=== PATIENT | female | born 1965 | race Asian ===

== ENCOUNTER 2021-10-23 10:30 | Emergency (ER) | payer OTHER ==
[2021-10-23] MEDS ORDERED: ACETAMINOPHEN 500 MG TAB ONE (10:59)
[2021-10-23] MEDS ORDERED: IBUPROFEN 400 MG TAB ONE (10:59)
[2021-10-23] MEDS ORDERED: TETANUS & DIPHTHERIA TOX,ADULT 0.5 ML VIAL ONE (11:00)
[2021-10-23] MEDS ORDERED: MUPIROCIN 2% OINT 22GM TUBE TOP ONE (11:05)
--- NOTE | 2021-10-23 11:05 | EDPHYS ---
Physician Documentation [facility] Name: Jayne Solano Age: 56 yrs Sex: Female : 1965 Arrival Date: 10/23/2021 Time: 10:31 Bed 17 Private MD: ED Physician Geovani Perez HPI: 10/23 10:47 This 56 yrs old Female presents to ER via Unassigned with complaints of Dog Bite. jr11 10:47 The patient was bitten on the lateral aspect of left thigh, by a dog, in an unprovoked jr11 manner, outdoors, animal control has dog and is testing brain. Onset: The symptoms/episode began/occurred [employer]. Animal information: The animal was reported to appear healthy. is unknown, The animal is unknown but captured. Animal control has been notified. Secondary to the bite the patient reports pain, a puncture wound, that is superficial. Associated signs and symptoms: The patient has no apparent associated signs or symptoms. Denies any other injuries, ambulatory . Historical: - Allergies: 10:48 No Known Allergies; ricketts - Home Meds: 10:48 None [Active]; ricketts - PMHx: 10:48 None; ricketts - PSHx: 10:48 None; ricketts - Immunization history:: Adult Immunizations up to date. - Social history:: Smoking status: Patient denies any tobacco usage or history of. ROS: 10:47 All other systems are negative. jr11 Exam: 10:47 Constitutional: This is a well developed, well nourished patient who is awake, alert, jr11 and in no acute distress. Head/Face: Normocephalic, atraumatic. Eyes: Extra-ocular motions intact. Lids and lashes normal. Conjunctiva and sclera are non-icteric and not injected. Cornea within normal limits. Periorbital areas with no swelling, redness, or edema. ENT: Nares patent. No nasal discharge, no septal abnormalities noted. Oropharynx with no redness, swelling, or masses, exudates, or evidence of obstruction, uvula midline. Mucous membranes moist. Chest/axilla: Normal chest wall appearance and motion. Nontender with no deformity. No lesions are appreciated. Cardiovascular: Regular rate and rhythm with a normal S1 and S2. No gallops, murmurs, or rubs. Normal PMI, no JVD. No pulse deficits. Respiratory: Lungs have equal breath sounds bilaterally, clear to auscultation and percussion. No rales, rhonchi or wheezes noted. No increased work of breathing, no retractions or nasal flaring. Abdomen/GI: Soft, non-tender, with normal bowel sounds. No distension or tympany. No guarding or rebound. No evidence of tenderness throughout. Back: No spinal tenderness. No costovertebral tenderness. Full range of motion. Neuro: Awake and alert, GCS 15, oriented to person, place, time, and situation. No gross motor or sensory deficits. 10:47 Skin: L mid thigh lateral aspect with 4 puncture wounds, no active bleeding . Vital Signs: 10:44 BP 162 / 112; Pulse 84; Resp 20; Temp 98.2; Pulse Ox 100% on R/A; Weight 53.52 kg; ricketts Height 5 ft. 2 in. (157.48 cm); 10:44 Body Mass Index 21.58 (53.52 kg, 157.48 cm) ricketts MDM: 10:34 Patient medically screened. [facility] 10:47 Differential diagnosis: superficial laceration, dog bite. Rabies Status: Rabies [facility] immunization is not indicated. Data reviewed: vital signs, nurses notes. ED course: Animal control has dog, will follow up with patient re rabies prophylaxis . 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 Exp: ricketts 07/26/2023. Lot #: [id number]. } Route: IM; Site: right deltoid; 10:56 Follow up: Response: No adverse reaction ricketts 10:56 Drug: Tylenol 1000 mg Route: PO; ricketts 11:20 Follow up: Response: No adverse reaction ricketts 10:56 Drug: Ibuprofen 400 mg Route: PO; ricketts 11:19 Follow up: Response: No adverse reaction ricketts Disposition Summary: 10/23/21 11:04 Discharge Ordered Location: Home [facility] Condition: Stable jr11 Diagnosis - Bitten by dog jr11 Discharge Instructions: - Discharge Summary Sheet jr11 - Animal Bite, Adult jr11 Forms: - Medication Reconciliation Form jr11 - Thank You Letter jr11 - Antibiotic Education jr11 - Prescription Opioid Use jr11 Prescriptions: - Augmentin 875-125 mg Oral Tablet - take 1 tablet by ORAL route every 12 hours for 10 days; 20 tablet; Refills: 0, jr11 Product Selection Permitted Signatures: Karishma Carbone RN RN ha Rosillo, Jose, MD MD jr Corrections: (The following items were deleted from the chart) 10:49 10:48 PSHx: Unable to Obtain; jamarcus ricketts
--- NOTE | 2021-10-23 11:05 | ER ---
Nurse's Notes [facility] Name: Jayne Solano Age: 56 yrs Sex: Female : 1965 Arrival Date: 10/23/2021 Time: 10:31 Bed 17 Private MD: Diagnosis: Bitten by dog Presentation: 10/23 10:44 Chief complaint: Patient states: stray dog bit pt on left upper leg. dog also bit a police dispatcher and the police shot the dog and is not at the animal control. brain biopsy will be perform to confirm if dog has rabies. Coronavirus screen: Vaccine status: Patient reports receiving the 2nd dose of the covid vaccine. Ebola Screen: Patient denies travel to an Ebola-affected area in the 21 days before illness onset. Initial Sepsis Screen: Does the patient meet any 2 criteria? No. Patient's initial sepsis screen is negative. Does the patient have a suspected source of infection? No. Patient's initial sepsis screen is negative. Risk Assessment: Do you want to hurt yourself or someone else? Patient reports no desire to harm self or others. Onset of symptoms was October 23, 2021. 10:44 Method Of Arrival: EMS: [facility] 10:44 Acuity: TRES 4 ricketts Triage Assessment: 10:48 Bite description: bite sustained to left quadriceps by a dog, animal information: ricketts vaccination(s) is unknown. General: Appears in no apparent distress. Behavior is calm, cooperative. Pain: Complains of pain in left quadriceps. Historical: - Allergies: 10:48 No Known Allergies; ricketts - Home Meds: 10:48 None [Active]; ricketts - PMHx: 10:48 None; ricketts - PSHx: 10:48 None; ricketts - Immunization history:: Adult Immunizations up to date. - Social history:: Smoking status: Patient denies any tobacco usage or history of. Screenin:47 Abuse screen: Denies threats or abuse. Denies injuries from another. Nutritional ricketts screening: No deficits noted. Tuberculosis screening: No symptoms or risk factors identified. Fall Risk None identified. Assessment: 10:48 Derm: Skin is intact, Skin is. ricketts Vital Signs: 10:44 BP 162 / 112; Pulse 84; Resp 20; Temp 98.2; Pulse Ox 100% on R/A; Weight 53.52 kg; ricketts Height 5 ft. 2 in. (157.48 cm); 10:44 Body Mass Index 21.58 (53.52 kg, 157.48 cm) ricketts ED Course: 10:31 Patient arrived in ED. ll1 10:31 Arm band placed on Patient placed in an exam room, on a stretcher. ll1 10:32 Geovani Perez MD is Attending Physician. jr11 10:42 Karishma Carbone, RN is Primary Nurse. ricketts 10:47 Triage completed. ricketts 10:47 Patient has correct armband on for positive identification. Bed in low position. ricketts 10:47 No provider procedures requiring assistance completed. ricketts 11:20 Patient did not have IV access during this emergency room visit. 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 Exp: ricketts 07/26/2023. Lot #: [id number]. } Route: IM; Site: right deltoid; 10:56 Follow up: Response: No adverse reaction ricketts 10:56 Drug: Tylenol 1000 mg Route: PO; ricketts 11:20 Follow up: Response: No adverse reaction ricketts 10:56 Drug: Ibuprofen 400 mg Route: PO; ricketts 11:19 Follow up: Response: No adverse reaction ricketts Medication: 10:48 VIS not applicable for this client. ricketts Outcome: 11:04 Discharge ordered by . jr11 11:20 Discharged to home ricketts 11:20 Condition: good 11:20 Discharge instructions given to patient, friend, Prescriptions given X 1. 11:21 Patient left the ED. ricketts Signatures: Namita Almazan RN RN 1 Karishma Carbone RN RN Geovani Perez MD MD jr11 Corrections: (The following items were deleted from the chart) 10:49 10:48 PSHx: Unable to Obtain; ricketts ricketts
[2021-10-23 11:25] VITALS: BP 162/112; TEMP 98.2; O2SAT 100
== END 2021-10-23 11:21 | disposition home or self-care (01) ==
LOC: ER 10:30
DX: S71.132A Puncture wound without foreign body, left thigh, initial encounter (principal); W54.0XXA Bitten by dog, initial encounter; Z23 Encounter for immunization
CPT/HCPCS: 90471; 90714; 99283